=== PATIENT | female | born 1975 | race American Indian/Alaskan Native ===

== ENCOUNTER 2017-03-14 20:39 | Emergency (ER) | payer MEDICAID ==
--- NOTE | 2017-03-14 20:39 | EDM.PDOC ---
ED HPI GENERAL MEDICAL PROBLEM - General Chief Complaint: Lower Extremity Injury/Pain Stated Complaint: HURT ANKLE Time Seen by Provider: 03/14/17 20:36 Source of Information: Reports: Patient, EMS - History of Present Illness INITIAL COMMENTS - FREE TEXT/NARRATIVE: ED via [facility], Patient reports falling on ice, "hyper extending" ankle, while getting out of truck and felt a crunch. Severe pain. Non weight bearing. No other injury reported. Pain initially just to ankle, now pain radiating to below kness. Right Ankle Pain Score (Numeric/FACES): 4 - Related Data Allergies Allergy/AdvReac Type Severity Reaction Status Date / Time No Known Allergies Allergy Verified 05/05/13 12:50 Home Meds: Home Meds . [No Known Home Meds] 05/05/13 [History] Past Medical History - Past Health History Medical/Surgical History: Denies Medical/Surgical History Social & Family History - Tobacco Use Years of Tobacco use: 15 Second Hand Smoke Exposure: Yes - Recreational Drug Use Recreational Drug Use: No Review of Systems - Review of Systems Review Of Systems: ROS reveals no pertinent complaints other than HPI. ED EXAM, GENERAL - Physical Exam Exam: See Below Exam Limited By: No Limitations General Appearance: Alert, Moderate Distress Ears: Normal External Exam Nose: Normal Inspection Throat/Mouth: Normal Inspection, Normal Voice Head: Atraumatic Neck: Normal Inspection, Full Range of Motion Respiratory/Chest: No Respiratory Distress, Normal Breath Sounds Cardiovascular: Normal Peripheral Pulses, Regular Rate, Rhythm Back Exam: Normal Inspection Extremities: Joint Swelling (right ankle swollen. Pain with minimal movement no gross deformity), Leg Pain (lower greater lateral with palpation). No: Normal Range of Motion Neurological: Alert, Normal Cognition Psychiatric: Tearful Skin Exam: Warm, Dry, Intact, Normal Color Course - Vital Signs Last Recorded V/S: Last Vital Signs Temp 97.2 F 03/14/17 20:49 Pulse 92 03/14/17 20:49 Resp 20 03/14/17 20:49 BP 123/82 03/14/17 20:49 Pulse Ox 99 03/14/17 20:49 - Orders/Labs/Meds Meds: Medications Discontinued Medications Generic Name Dose Route Start Last Admin Trade Name Freq PRN Reason Stop Dose Admin Oxycodone/Acetaminophen 1 tab 03/14/17 20:51 03/14/17 21:02 Percocet 325-5 Mg PO 03/14/17 20:52 1 tab ONETIME ONE Administration Departure - Departure Time of Disposition: 22:54 Disposition: Home, Self-Care 01 Condition: Good Clinical Impression: Ankle sprain Qualifiers: Encounter type: initial encounter Involved ligament of ankle: unspecified ligament Laterality: right Qualified Code(s): S93.401A - Sprain of unspecified ligament of right ankle, initial encounter - Discharge Information Instructions: Ankle Sprain, [id number] Forms: ED Department Discharge Additional Instructions: Weight bearing as tolerated with boot and crutches tylenol or ibuprofen for discomfort recheck in clinic in one week
[2017-03-14] MEDS ORDERED: Acetaminophen/oxyCODONE 325-5 MG Tab PO ONE (20:51)
== END 2017-03-14 23:05 | disposition home or self-care (01) ==
LOC: DL.ED 20:39
DX: S93.401A Sprain of unspecified ligament of right ankle, initial encounter (principal); W00.0XXA Fall on same level due to ice and snow, initial encounter; Z77.22 Contact with and (suspected) exposure to environmental tobacco smoke (acute) (chronic)
CPT/HCPCS: 73590; 73610; 73620; 99283; A9270

== ENCOUNTER 2017-04-15 19:28 | Emergency (ER) | payer MEDICAID ==
--- NOTE | 2017-04-15 19:42 | EDM.PDOC ---
ED HPI GENERAL MEDICAL PROBLEM - General Chief Complaint: Chest Pain Stated Complaint: CAME BY AMBULANCE, CHEST PAIN Time Seen by Provider: 04/15/17 19:40 Source of Information: Reports: Patient History Limitations: Reports: No Limitations - History of Present Illness INITIAL COMMENTS - FREE TEXT/NARRATIVE: 2 weeks h/o on off mid sternal sharp pain, worse when deep breath and move or lift. gone when resting. thinks it's muscular but not getting better and now worried. 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 - Past Surgical History Female Surgical History: Reports: Section Social & Family History - Family History Family Medical History: Noncontributory - Tobacco Use Smoking Status *Q: Never Smoker Years of Tobacco use: 15 Used Tobacco, but Quit: No Second Hand Smoke Exposure: Yes - Caffeine Use Caffeine Use: Reports: Coffee - Recreational Drug Use Recreational Drug Use: No ED ROS GENERAL - Review of Systems Review Of Systems: ROS reveals no pertinent complaints other than HPI. ED EXAM, GENERAL - Physical Exam Exam: See Below Exam Limited By: No Limitations General Appearance: Alert, WD/WN, Mild Distress, Moderate Distress, Other ( episodic sharp pain) Ears: Hearing Grossly Normal Throat/Mouth: Normal Voice, No Airway Compromise Head: Atraumatic Neck: Non-Tender, Full Range of Motion Respiratory/Chest: No Respiratory Distress, Normal Breath Sounds, Splinting, Other (tender mid sternum) Cardiovascular: Regular Rate, Rhythm GI/Abdominal: Soft, Non-Tender Neurological: Alert, Oriented, Normal Cognition, Normal Gait, No Motor/Sensory Deficits Psychiatric: Tearful Skin Exam: Warm, Dry, Normal Color Lymphatic: No Adenopathy Course - Vital Signs Last Recorded V/S: Last Vital Signs Temp 37.1 C 04/15/17 19:38 Pulse 69 04/15/17 19:38 Resp 16 04/15/17 19:38 BP 123/86 04/15/17 19:38 Pulse Ox 97 04/15/17 19:38 - Orders/Labs/Meds Labs: Laboratory Tests 04/15/17 04/15/17 04/15/17 Range/Units 19:47 19:47 19:47 WBC 6.4 (5.0-10.0) 10^3/uL RBC 4.05 L (4.2-5.4) 10^6/uL Hgb 13.1 (12.0-16.0) g/dL Hct 38.1 (37.0-47.0) % MCV 94.1 D (80-100) fL MCH 32.3 (27.0-34.0) pg MCHC 34.4 (33.0-35.0) g/dL Plt Count 233 (150-450) 10^3/uL Neut % (Auto) 51.2 (42.2-75.2) % Lymph % (Auto) 36.9 (20.5-50.1) % [place] % (Auto) 6.7 (2-8) % Eos % (Auto) 4.4 H (1.0-3.0) % Baso % (Auto) 0.8 (0.0-1.0) % D-Dimer, Quantitative < 100 (0-400) ng/mL Sodium 138 (135-145) mmol/L Potassium 3.8 (3.6-5.0) mmol/L Chloride 103 (101-111) mmol/L Carbon Dioxide 29.0 (21.0-31.0) mmol/L Anion Gap 9.8 BUN 10 (7-18) mg/dL Creatinine 0.7 (0.6-1.3) mg/dL Est Cr Clr Drug Dosing 92.25 mL/min Estimated GFR (MDRD) > 60 BUN/Creatinine Ratio 14.28 Glucose 99 (74-105) mg/dL Calcium 9.2 (8.4-10.2) mg/dl Total Bilirubin 1.3 H (0.2-1.0) mg/dL AST 20 (10-42) IU/L ALT 22 (10-60) IU/L Alkaline Phosphatase 52 (42-121) IU/L Troponin I < 0.02 (0.00-0.02) ng/ml Total Protein 7.7 (6.7-8.2) g/dl Albumin 4.6 (3.2-5.5) g/dl Globulin 3.1 Albumin/Globulin Ratio 1.48 Meds: Medications Discontinued Medications Generic Name Dose Route Start Last Admin Trade Name Freq PRN Reason Stop Dose Admin Ketorolac Tromethamine 15 mg 04/15/17 19:48 04/15/17 20:08 Toradol IVPUSH 04/15/17 19:49 15 mg ONETIME ONE Administration - Re-Assessments/Exams Free Text/Narrative Re-Assessment/Exam: 04/15/17 20:33 results discussed with pt who is feeling better s/p IV toradol Departure - Departure Time of Disposition: 20:34 Disposition: Home, Self-Care 01 Condition: Good Clinical Impression: Muscle strain of anterior chest wall Instructions: Muscle Strain, [id number] Forms: ED Department Discharge Additional Instructions: 1) try heat pad to sore area 2) avoid bending lifting staining next 4 to 5 days 3) recheck as needed rxgiven; flexeril 10mg bid prn x 12
[2017-04-15] MEDS ORDERED: Ketorolac 30 MG/ML SDV IVPUSH ONE (19:48)
[2017-04-15 20:13] LABS: CHLORIDE,CL 103 mmol/L (101-111); SODIUM,NA 138 mmol/L (135-145)
--- NOTE | 2017-04-23 09:53 | EKG ---
04/15/2017- SHELBY GUNN - EKG per my reading shows sinus rhythm. [facility] /[id number]
== END 2017-04-15 20:41 | disposition home or self-care (01) ==
LOC: DL.ED 19:28
DX: S29.011A Strain of muscle and tendon of front wall of thorax, initial encounter (principal); X50.9XXA Other and unspecified overexertion or strenuous movements or postures, initial encounter
CPT/HCPCS: 36415; 80053; 84484; 85025; 85379; 96374; 99285; J1885

== ENCOUNTER 2018-07-27 19:47 | Emergency (ER) | payer MEDICAID, OTHER ==
[2018-07-27 20:52] LABS: CHLORIDE,CL 105 mmol/L (101-111); SODIUM,NA 137 mmol/L (135-145)
[2018-07-27] MEDS ORDERED: Ondansetron 4 MG/2 ML SDV IV ONE (21:01)
[2018-07-27] MEDS ORDERED: HYDROmorphone 1 MG/ML Syringe IVPUSH ONE (21:03)
[2018-07-27] MEDS ORDERED: Iopamidol 612 MG/ML 75 ML Bottle IVPUSH ONE (21:30)
--- NOTE | 2018-07-27 22:20 | EDM.PDOC ---
"ED HPI GENERAL MEDICAL PROBLEM - General Chief Complaint: Abdominal Pain Stated Complaint: APPENDIX [id number] Time Seen by Provider: 07/27/18 20:05 Source of Information: Reports: Patient History Limitations: Reports: No Limitations - History of Present Illness INITIAL COMMENTS - FREE TEXT/NARRATIVE: ED with c/o nausea, cough and RLQ pain, Pain started this am after coughing and constant since, some increase tonight, unable to get out of bed tonight due to pain, one diarrhea stool, one emesis with coughing. Fever since friday with onset of cold symptoms. Seen in clinic earlier today for same complaint, told she didn't have flu or appendicitis. 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 - Past Surgical History Other Cardiovascular Surgeries/Procedures: Had a stress test two weeks ago ( approx 07/13/18) Female Surgical History: Reports: Section Social & Family History - Family History Family Medical History: Noncontributory - Tobacco Use Smoking Status *Q: Never Smoker - Caffeine Use Caffeine Use: Reports: Coffee - Recreational Drug Use Recreational Drug Use: No ED ROS GENERAL - Review of Systems Review Of Systems: ROS reveals no pertinent complaints other than HPI. ED EXAM, GI/ABD - Physical Exam Exam: See Below Exam Limited By: No Limitations General Appearance: Alert, Moderate Distress Eyes: Bilateral: EOMI Ears: Normal External Exam Nose: Normal Inspection Throat/Mouth: Normal Inspection Head: Atraumatic, Normocephalic Neck: Normal Inspection Respiratory/Chest: No Respiratory Distress, Lungs Clear, Decreased Breath Sounds Cardiovascular: Normal Peripheral Pulses, Regular Rate, Rhythm GI/Abdominal Exam: Soft, Guarding, Rebound, Tender (RLQ), Abnormal Bowel Sounds (hypoactive) Back Exam: Normal Inspection Extremities: Normal Inspection Neurological: Alert, Oriented Psychiatric: Normal Affect Skin Exam: Warm, Dry, Intact, Normal Color Course - Vital Signs Last Recorded V/S: Last Vital Signs Temp 99.5 F 07/27/18 19:54 Pulse 106 H 07/27/18 19:54 Resp 18 07/27/18 19:54 BP 109/71 07/27/18 19:54 Pulse Ox 100 07/27/18 19:54 - Orders/Labs/Meds Orders: Active Orders 24 hr Category Date Time Status CULTURE BLOOD [BC] Stat Lab 07/27/18 20:24 Received Labs: Laboratory Tests 07/27/18 07/27/18 07/27/18 Range/Units 20:24 20:24 20:24 WBC 10.2 H (5.0-10.0) 10^3/uL RBC 4.31 (4.2-5.4) 10^6/uL Hgb 14.1 (12.0-16.0) g/dL Hct 40.4 (37.0-47.0) % MCV 93.7 (80-100) fL MCH 32.7 (27.0-34.0) pg MCHC 34.9 (33.0-35.0) g/dL Plt Count 185 (150-450) 10^3/uL Neut % (Auto) 73.3 (42.2-75.2) % Lymph % (Auto) 18.3 L (20.5-50.1) % [place] % (Auto) 7.9 (2-8) % Eos % (Auto) 0.4 L (1.0-3.0) % Baso % (Auto) 0.1 (0.0-1.0) % Sodium (135-145) mmol/L Potassium (3.6-5.0) mmol/L Chloride (101-111) mmol/L Carbon Dioxide (21.0-31.0) mmol/L Anion Gap BUN (7-18) mg/dL Creatinine (0.6-1.3) mg/dL Est Cr Clr Drug Dosing mL/min Estimated GFR (MDRD) BUN/Creatinine Ratio Glucose (74-105) mg/dL Lactic Acid (0.5-2.2) mmol/L Calcium (8.4-10.2) mg/dl Total Bilirubin (0.2-1.0) mg/dL AST (10-42) IU/L ALT (10-60) IU/L Alkaline Phosphatase (42-121) IU/L Total Protein (6.7-8.2) g/dl Albumin (3.2-5.5) g/dl Globulin Albumin/Globulin Ratio Amylase (28-100) U/L Lipase (22-51) U/L Urine Color Yellow (YELLOW) Urine Appearance Slightly cloudy (CLEAR) Urine pH 7.0 (5.0-9.0) Ur Specific [place] 1.015 (1.005-1.030) Urine Protein Negative (NEGATIVE) Urine Glucose (UA) Negative (NEGATIVE) Urine Ketones Negative (NEGATIVE) Urine Occult Blood Small H (NEGATIVE) Urine Nitrite Negative (NEGATIVE) Urine Bilirubin Negative (NEGATIVE) Urine Urobilinogen 2.0 H (0.2-1.0) mg/dL Ur Leukocyte Esterase Negative (NEGATIVE) Urine RBC 5-10 H /HPF Urine WBC 0-5 (0-5/HPF) /HPF Ur Epithelial Cells Few /HPF Amorphous Sediment Rare (0/HPF) /HPF Urine Bacteria Rare (0-FEW/HPF) /HPF Urine Mucus Rare /LPF Urine HCG, Qual Negative 07/27/18 07/27/18 Range/Units 20:24 20:24 WBC (5.0-10.0) 10^3/uL RBC (4.2-5.4) 10^6/uL Hgb (12.0-16.0) g/dL Hct (37.0-47.0) % MCV (80-100) fL MCH (27.0-34.0) pg MCHC (33.0-35.0) g/dL Plt Count (150-450) 10^3/uL Neut % (Auto) (42.2-75.2) % Lymph % (Auto) (20.5-50.1) % [place] % (Auto) (2-8) % Eos % (Auto) (1.0-3.0) % Baso % (Auto) (0.0-1.0) % Sodium 137 (135-145) mmol/L Potassium 4.0 (3.6-5.0) mmol/L Chloride 105 (101-111) mmol/L Carbon Dioxide 22.0 (21.0-31.0) mmol/L Anion Gap 14.0 BUN 6 L (7-18) mg/dL Creatinine 0.5 L (0.6-1.3) mg/dL Est Cr Clr Drug Dosing 127.86 mL/min Estimated GFR (MDRD) > 60 BUN/Creatinine Ratio 12.00 Glucose 100 (74-105) mg/dL Lactic Acid 1.1 (0.5-2.2) mmol/L Calcium 8.3 L (8.4-10.2) mg/dl Total Bilirubin 2.7 H (0.2-1.0) mg/dL AST 25 (10-42) IU/L ALT 10 (10-60) IU/L Alkaline Phosphatase 54 (42-121) IU/L Total Protein 7.9 (6.7-8.2) g/dl Albumin 4.1 (3.2-5.5) g/dl Globulin 3.8 Albumin/Globulin Ratio 1.08 Amylase 19 L (28-100) U/L Lipase 18 L (22-51) U/L Urine Color (YELLOW) Urine Appearance (CLEAR) Urine pH (5.0-9.0) Ur Specific [place] (1.005-1.030) Urine Protein (NEGATIVE) Urine Glucose (UA) (NEGATIVE) Urine Ketones (NEGATIVE) Urine Occult Blood (NEGATIVE) Urine Nitrite (NEGATIVE) Urine Bilirubin (NEGATIVE) Urine Urobilinogen (0.2-1.0) mg/dL Ur Leukocyte Esterase (NEGATIVE) Urine RBC /HPF Urine WBC (0-5/HPF) /HPF Ur Epithelial Cells /HPF Amorphous Sediment (0/HPF) /HPF Urine Bacteria (0-FEW/HPF) /HPF Urine Mucus /LPF Urine HCG, Qual Meds: Medications Discontinued Medications Generic Name Dose Route Start Last Admin Trade Name Bismarkq PRN Reason Stop Dose Admin Hydromorphone HCl 1 mg 07/27/18 21:03 07/27/18 21:13 Dilaudid IVPUSH 07/27/18 21:04 1 mg ONETIME ONE Administration Sodium Chloride 1,000 mls @ 200 mls/hr 07/27/18 22:30 07/27/18 22:23 Normal Saline IV 200 mls/hr ASDIRECTED JYANE Administration Iopamidol 75 ml 07/27/18 21:30 07/27/18 21:54 Isovue-300 (61%) IVPUSH 07/27/18 21:31 75 ml ONETIME ONE Administration Ondansetron HCl 4 mg 07/27/18 21:01 07/27/18 21:09 Zofran IV 07/27/18 21:02 4 mg ONETIME ONE Administration - Radiology Interpretation Free Text/Narrative:: [facility] [place] [facility] Final Radiology Report with Addendum Call: [phone] assistance Online chat: [email or web address] Name: SHELBY GUNN Age: 43Years F Date: 07/27/2018 SSN: -- : [id number] Study: CT ABDOMEN/PELVIS W Requesting Physician: MER ALLRED Images: 220 Addl Studies: Provided Clinical History: Contrast: With Contrast Medium: Iso 300 Contrast Amount: 75 mL Contrast Method: L AC 18g Page 1 of 2 Addendum created by Khoa Paul MD on 07/27/2018 10:11 PM Central Time ([place] & [place]) THIS REPORT CONTAINS FINDINGS THAT MAY BE CRITICAL TO PATIENT CARE. The findings were verbally communicated via telephone conference with MER ALLRED at 10: 10 PM CDT on 07/27/2018. The findings were acknowledged and understood. Initial Report created on 07/27/2018 10:09 PM Central Time ([place] & [place]) EXAM: CT Abdomen and Pelvis With Contrast EXAM DATE/TIME: 07/27/2018 9:44 PM CLINICAL HISTORY: 43 years old, female; Abdominal pain; Localized; Right lower quadrant (rlq); Patient HX: Tubal ligation, HX of 2 c sections TECHNIQUE: Imaging protocol: Axial computed tomography images of the abdomen and pelvis with intravenous contrast. Coronal and sagittal reformatted images were created and reviewed. Radiation optimization: All CT scans at this facility use at least one of these dose optimization techniques: automated exposure control; mA and/or kV adjustment per patient size (includes targeted exams where dose is matched to clinical indication); or iterative reconstruction. Contrast material: ISO 300; Contrast volume: 75 ml; Contrast route: L AC 18G; COMPARISON: No relevant prior studies available. FINDINGS: SHELBY GUNN | Final Radiology Report CONFIDENTIALITY STATEMENT This report is intended only for use by the referring physician, and only in accordance with law. If you received this in error, call [phone]. Page 2 of 2 ABDOMEN: Liver: No suspicious lesions. Gallbladder and bile ducts: No acute or concerning findings. Pancreas: Unremarkable. No ductal dilation. Spleen: No suspicious lesions. Adrenals: Unremarkalbe. No suspicious mass. Kidneys and ureters: Unremarkable. No hydro. No suspicious lesions. Stomach and bowel: Unremarkable. No obstruction or inflammatory changes. Appendix: Appendix dilated at 9 mm. Periappendiceal inflammatory changes. PELVIS: Bladder: Unremarkable as visualized. Reproductive: Unremarkable as visualized. ABDOMEN and PELVIS: Intraperitoneal space: No free air. No significant fluid collection. Bones/joints: No acute fracture. No dislocation. Soft tissues: Unremarkable. Vasculature: Unremarkable. No acute findings Lymph nodes: Unremarkable. IMPRESSION: Uncomplicated acute appendicitis. Thank you for allowing us to participate in the care of your patient. Dictated and Authenticated by: Khoa Paul MD - Re-Assessments/Exams Free Text/Narrative Re-Assessment/Exam: 07/28/18 00:[address] audrey Paredes accepting of patient, tx via [facility]. NPO enroute. Departure - Departure Time of Disposition: 22:24 Disposition: Home, Self-Care 01 Condition: Good Clinical Impression: Acute appendicitis Qualifiers: Acute appendicitis type: unspecified acute appendicitis type Qualified Code(s) : K35.80 - Unspecified acute appendicitis URI (upper respiratory infection) Qualifiers: URI type: unspecified viral URI Qualified Code(s): J06.9 - Acute upper respiratory infection, unspecified - Discharge Information *PRESCRIPTION DRUG MONITORING PROGRAM REVIEWED*: Yes *COPY OF PRESCRIPTION DRUG MONITORING REPORT IN PATIENT ROSHAN: No Forms: ED Department Discharge - My Orders Last 24 Hours: My Active Orders 07/27/18 20:24 CULTURE BLOOD [BC] Stat - Assessment/Plan Last 24 Hours: My Active Orders 07/27/18 20:24 CULTURE BLOOD [BC] Stat"
[2018-07-27] MEDS ORDERED: Sodium Chloride 0.9% 1,000 ML IV SCH (22:30)
== END 2018-07-27 22:35 | disposition home or self-care (01) ==
LOC: DL.ED 19:47
DX: K35.80 Unspecified acute appendicitis (principal); J06.9 Acute upper respiratory infection, unspecified
CPT/HCPCS: 36415; 74177; 80053; 81001; 81025; 82150; 83605; 83690; 85025; 87040; 87804; 96374; 96375; 99285; J1170; J2405; J7030; Q9967

== ENCOUNTER 2019-10-30 21:45 | Emergency (ER) | payer MEDICAID, OTHER ==
[2019-10-30] MEDS ORDERED: Diphtheria,Pertussis(Acell),Tetanus Vaccine 0.5 ML SDV IM ONE (22:15)
[2019-10-30] MEDS ORDERED: Bacitracin Oint 1 GM U/D Packet TOP ONE (22:15)
--- NOTE | 2019-10-30 22:28 | EDM.PDOC ---
ED HPI GENERAL MEDICAL PROBLEM - General Chief Complaint: Laceration Stated Complaint: CUT LEFT THUMB TIP. Time Seen by Provider: 10/30/19 22:15 Source of Information: Reports: Patient History Limitations: Reports: No Limitations - History of Present Illness INITIAL COMMENTS - FREE TEXT/NARRATIVE: This 44 yo female patient reports to the ED with a laceration to her left distal thumb. The patient reports she was cutting apples when she cut her finger. Onset: Today Duration: Minutes: Location: Reports: Upper Extremity, Left Quality: Reports: Ache Severity: Mild Improves with: Reports: None Worsens with: Reports: None Context: Reports: Activity Associated Symptoms: Reports: No Other Symptoms Left Finger-Thumb Pain Score (Numeric/FACES): 4 - Related Data Allergies Allergy/AdvReac Type Severity Reaction Status Date / Time No Known Allergies Allergy Verified 10/30/19 22:08 Home Meds: Home Meds Albuterol [Proventil Neb Soln] 3 ml INH Q4HR PRN 07/27/18 [History] Past Medical History - Past Health History Medical/Surgical History: Denies Medical/Surgical History HEENT History: Reports: Impaired Vision Gastrointestinal History: Reports: None Genitourinary History: Reports: None 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 Musculoskeletal History: Reports: None Neurological History: Reports: None Psychiatric History: Reports: None Endocrine/Metabolic History: Reports: None Hematologic History: Reports: None Immunologic History: Reports: None Oncologic (Cancer) History: Reports: None Dermatologic History: Reports: None - Past Surgical History Head Surgeries/Procedures: Reports: None Other Cardiovascular Surgeries/Procedures: Had a stress test (approx 07/13/18) Female Surgical History: Reports: Section Social & Family History - Family History Family Medical History: Noncontributory - Tobacco Use Smoking Status *Q: Never Smoker - Caffeine Use Caffeine Use: Reports: Coffee - Recreational Drug Use Recreational Drug Use: No ED ROS GENERAL - Review of Systems Review Of Systems: Comprehensive ROS is negative, except as noted in HPI. ED EXAM, SKIN/RASH Exam: See Below Exam Limited By: No Limitations General Appearance: Alert, WD/WN, Moderate Distress Eye Exam: Bilateral Eye: EOMI, Normal Inspection, PERRL Ears: Normal External Exam, Normal Canal, Hearing Grossly Normal, Normal TMs Nose: Normal Inspection, Normal Mucosa, No Blood Throat/Mouth: Normal Inspection, Normal Lips, Normal Teeth, Normal Gums, Normal Oropharynx, Normal Voice, No Airway Compromise Head: Atraumatic, Normocephalic Neck: Normal Inspection, Supple, Non-Tender, Full Range of Motion Respiratory/Chest: No Respiratory Distress, Lungs Clear, Normal Breath Sounds, No Accessory Muscle Use, Chest Non-Tender Cardiovascular: Normal Peripheral Pulses, Regular Rate, Rhythm, No Edema, No Gallop, No JVD, No Murmur, No Rub (Female) Exam: Deferred Rectal (Female) Exam: Deferred Back Exam: Normal Inspection, Full Range of Motion, NT Extremities: Arm Pain (left distal thumb laceration) Neurological: Alert, Oriented, CN II-XII Intact, Normal Cognition, Normal Gait, Normal Reflexes, No Motor/Sensory Deficits Psychiatric: Normal Affect, Normal Mood Skin: Wound/Incision Location, Skin: Upper Extremity, Left Characteristics: Linear Lymphatic: No Adenopathy Course - Vital Signs Last Recorded V/S: Last Vital Signs Temp 37.3 C 10/30/19 22:08 Pulse 80 10/30/19 22:08 Resp 16 10/30/19 22:08 BP 119/82 10/30/19 22:08 Pulse Ox 100 10/30/19 22:08 - Orders/Labs/Meds Orders: Active Orders 24 hr Category Date Time Status Vaccines to be Administered [RC] PER UNIT ROUTINE Care 10/30/19 22:16 Active Meds: Medications Discontinued Medications Generic Name Dose Route Start Last Admin Trade Name Freq PRN Reason Stop Dose Admin Bacitracin 1 dose 10/30/19 22:15 Bacitracin Oint 1 Gm TOP 10/30/19 22:16 ONETIME ONE Diphtheria/Tetanus/Acell Pertussis 0.5 ml 10/30/19 22:15 Adacel IM 10/30/19 22:16 .ONCE ONE Departure - Departure Time of Disposition: 22:25 Disposition: Home, Self-Care 01 Condition: Fair Clinical Impression: Laceration of left thumb Qualifiers: Encounter type: initial encounter Damage to nail status: without damage Foreign body presence: without foreign body Qualified Code(s): S61.012A - Laceration without foreign body of left thumb without damage to nail, initial encounter - Discharge Information *PRESCRIPTION DRUG MONITORING PROGRAM REVIEWED*: Not Applicable *COPY OF PRESCRIPTION DRUG MONITORING REPORT IN PATIENT ROSHAN: Not Applicable Instructions: Laceration Care, Adult, [id number] Care Plan Goals: The patient was advised of the examination results during the visit. The patient's wound was cleaned and dressed with antibiotic ointment. The patient was given a Tetanus injection during the visit. The patient was advised to keep the area clean and dry over the next 48 hours. If the patient has any additional symptoms or concerns, the patient should either return to the emergency department or visit her primary care facility. Sepsis Event Note (ED) - Evaluation Sepsis Screening Result: No Definite Risk - Focused Exam Vital Signs: Vital Signs Temp Pulse Resp BP Pulse Ox 10/30/19 22:08 37.3 C 80 16 119/82 100 - My Orders Last 24 Hours: My Active Orders 10/30/19 22:16 Vaccines to be Administered [RC] PER UNIT ROUTINE - Assessment/Plan Last 24 Hours: My Active Orders 10/30/19 22:16 Vaccines to be Administered [RC] PER UNIT ROUTINE
== END 2019-10-30 22:29 | disposition home or self-care (01) ==
LOC: DL.ED 21:45
DX: S61.012A Laceration without foreign body of left thumb without damage to nail, initial encounter (principal); Z98.890 Other specified postprocedural states; Z23 Encounter for immunization; W26.0XXA Contact with knife, initial encounter
CPT/HCPCS: 90471; 90715; 99282; 99282-25

== ENCOUNTER 2020-04-12 14:08 | Emergency (ER) | payer OTHER ==
--- NOTE | 2020-04-12 14:41 | EDM.PDOC ---
ED HPI GENERAL MEDICAL PROBLEM - General Chief Complaint: Lower Extremity Injury/Pain Stated Complaint: LEFT LEG MIGHT HAVE BLOOD CLOT, RED Time Seen by Provider: 04/12/20 14:30 Source of Information: Reports: Patient, RN, RN Notes Reviewed History Limitations: Reports: No Limitations - History of Present Illness INITIAL COMMENTS - FREE TEXT/NARRATIVE: Patient presents to the ED via personal vehicle with complaints of erythema, edema, and pain to her left posterior calf. She reports these symptoms began three days ago and have progressively worsened since that time; she reports a limping gait because of the pain. She denies history of DVT and is not on blood thinners. She denies recent surgery, long sitting position, or long standing position. She denies chest pain, chest pressure, palpitations, shortness of breath, loss of motor function to the extremity, loss of sensory function to the area. She denies any chronic health conditions and states she is otherwise "...pretty healthy." She denies tobacco or alcohol use but attests to smoking cannabis about one week prior to today. left calf Pain Score (Numeric/FACES): 6 - Related Data Allergies Allergy/AdvReac Type Severity Reaction Status Date / Time No Known Allergies Allergy Verified 04/12/20 14:32 Home Meds: Home Meds Albuterol [Proventil Neb Soln] 3 ml INH Q4HR PRN 07/27/18 [History] Past Medical History - Past Health History Medical/Surgical History: Denies Medical/Surgical History HEENT History: Reports: Impaired Vision Gastrointestinal History: Reports: None Genitourinary History: Reports: None EMERGENCY MEDCL EMT History: Reports: , Other (See Below) Other EMERGENCY MEDCL EMT History: c-sect, tubes tied. Musculoskeletal History: Reports: None Neurological History: Reports: None Psychiatric History: Reports: None Endocrine/Metabolic History: Reports: None Hematologic History: Reports: None Immunologic History: Reports: None Oncologic (Cancer) History: Reports: None Dermatologic History: Reports: None - Past Surgical History Head Surgeries/Procedures: Reports: None Other Cardiovascular Surgeries/Procedures: Had a stress test (approx 07/13/18) Female Surgical History: Reports: Section Social & Family History - Family History Family Medical History: No Pertinent Family History - Caffeine Use Caffeine Use: Reports: Coffee Review of Systems - Review of Systems Review Of Systems: Comprehensive ROS is negative, except as noted in HPI. ED EXAM, GENERAL - Physical Exam Exam: See Below Exam Limited By: No Limitations General Appearance: Alert, WD/WN, No Apparent Distress Eye Exam: Right Eye: Proptosis, Bilateral Eye: EOMI, Normal Inspection, PERRL (3mm) Throat/Mouth: Normal Inspection, Normal Voice, No Airway Compromise Head: Atraumatic, Normocephalic Respiratory/Chest: No Respiratory Distress, Normal Breath Sounds, No Accessory Muscle Use, Chest Non-Tender, Decreased Breath Sounds Cardiovascular: Normal Peripheral Pulses, Regular Rate, Rhythm, No Edema, No Gallop, No JVD, No Murmur, No Rub Peripheral Pulses: 2+: Radial (L), Radial (R), Dorsalis Pedis (L), Dorsalis Pedis (R) Extremities: Prateek's Sign (To left), Leg Pain (To left postior lower leg), Increased Warmth (To left postior lower leg), Redness (To left postior lower leg) Neurological: Alert, Oriented, CN II-XII Intact, Normal Cognition, No Motor/Sensory Deficits, Abnormal Gait (Limping gait d/t pain) Psychiatric: Normal Affect, Normal Mood Skin Exam: Dry, Intact, Erythema (To left postior lower leg), Increased Warmth (To left postior lower leg), Other (Significant amount of varicose veins in bilateral lower extremities). No: Ecchymosis, Jaundice, Mottled, Pallor, Petechiae Course - Vital Signs Last Recorded V/S: Last Vital Signs Temp 98.0 F 04/12/20 14:17 Pulse 85 04/12/20 14:17 Resp 20 04/12/20 14:17 BP 111/79 04/12/20 14:17 Pulse Ox 99 04/12/20 14:17 - Orders/Labs/Meds Labs: Laboratory Tests 04/12/20 04/12/20 04/12/20 Range/Units 14:39 14:39 14:39 WBC 5.2 (5.0-10.0) 10^3/uL RBC 4.09 L (4.2-5.4) 10^6/uL Hgb 13.5 (12.0-16.0) g/dL Hct 39.5 (37.0-47.0) % MCV 96.6 (80-100) fL MCH 33.0 (27.0-34.0) pg MCHC 34.2 (33.0-35.0) g/dL Plt Count 230 (150-450) 10^3/uL Neut % (Auto) 67.4 (42.2-75.2) % Lymph % (Auto) 16.9 L (20.5-50.1) % [place] % (Auto) 10.1 H (2-8) % Eos % (Auto) 5.4 H (1.0-3.0) % Baso % (Auto) 0.2 (0.0-1.0) % PT 9.3 (9.0-12.0) SEC INR 1.0 (0.9-1.2) APTT 23.7 (22.0-34.0) SEC D-Dimer, Quantitative 832 H (0-400) ng/mL Sodium 137 (136-145) mmol/L Potassium 3.6 (3.5-5.1) mmol/L Chloride 101 (98-107) mmol/L Carbon Dioxide 25 (21-32) mmol/L Anion Gap 14.6 H (7-13) mEq/L BUN 13 (7-18) mg/dL Creatinine 0.74 (0.55-1.02) mg/dL Est Cr Clr Drug Dosing 84.65 mL/min Estimated GFR (MDRD) > 60 BUN/Creatinine Ratio 17.6 (No establ ref range) Glucose 111 H (74-99) mg/dL Calcium 8.5 (8.5-10.1) mg/dL Total Bilirubin 1.2 H (0.2-1.0) mg/dL AST 33 (15-37) U/L ALT 67 H (14-59) U/L Alkaline Phosphatase 85 (46-116) U/L Total Protein 7.4 (6.4-8.2) g/dL Albumin 3.7 (3.4-5.0) g/dL Globulin 3.7 Albumin/Globulin Ratio 1.0 - Re-Assessments/Exams Free Text/Narrative Re-Assessment/Exam: 04/12/20 CBC and CMP unremarkable for acute processes. US of left lower extremity revealed no DVT, large popliteal cyst, and thrombosed varices. Discussed findings with patient who verbalized understanding. Will treat thrombosed varices with enoxaparin 40 mg QD until she is able to see her PCP. She has an appointment scheduled for this upcoming Friday, which is six days away. Discussed supportive cares and red flag signs and symptoms which would warrant reexamination. Patient verbalized understanding and agreement with the plan of care. Departure - Departure Time of Disposition: 16:28 Disposition: Home, Self-Care 01 Condition: Good Clinical Impression: Acute superficial venous thrombosis of lower extremity Qualifiers: Laterality: left Qualified Code(s): I82.812 - Embolism and thrombosis of superficial veins of left lower extremity - Discharge Information *PRESCRIPTION DRUG MONITORING PROGRAM REVIEWED*: Not Applicable *COPY OF PRESCRIPTION DRUG MONITORING REPORT IN PATIENT ROSHAN: Not Applicable Instructions: Venous Thromboembolism Prevention Referrals: PCP,None [Primary Care Provider] - Forms: ED Department Discharge Additional Instructions: Rx: Enoxaparin 40mg 1.) Keep your appointment with your primary care provider for 04/18/20. 2.) You may take ibuprofen (Advil/Motrin) 400mg every six hours for pain and swelling to your leg. 3.) You may utilize compression therapy via compression stockings to both legs. Sepsis Event Note (ED) - Evaluation Sepsis Screening Result: No Definite Risk - Focused Exam Vital Signs: Vital Signs Temp Pulse Resp BP Pulse Ox 04/12/20 14:17 98.0 F 85 20 111/79 99
[2020-04-12 15:08] LABS: ANION GAP 14.6 mEq/L (7-13); CHLORIDE,CL 101 mmol/L (98-107); SODIUM,NA 137 mmol/L (136-145)
[2020-04-12 15:10] LABS: PTT,PARTIAL THROMBOPLSTIN TIME 23.7 SEC (22.0-34.0)
--- NOTE | 2020-04-12 15:48 | US ---
EXAMINATION: Venous Doppler Lwr Ext Lt SEX: Female AGE: 45 years CLINICAL HISTORY: 45-year-old female pain, swelling and erythema calf left lower extremity. Interpretation: No sonographic evidence deep vein thrombosis. Large avascular popliteal ([place]'s cyst). Thrombosed superficial veins posteriorly left calf. 1. Large 3.0 x 2.5 x 1.5 cm diameter avascular hypoechoic cysts in the popliteal fossa behind the left knee. 2. Noncompressible superficial venous structures region clinical concern i.e. phlebitis/thrombosed varices. 3. No sign of intraluminal echogenic thrombus and normal compressibility deep veins left groin, thigh, knee and calf with satisfactory augmentation and venous waveforms demonstrated respectively in the peroneal/posterior tibial veins of the left calf, popliteal vein behind the left knee, and proximally in the femoral veins of the left thigh and groin. 4. No lymphadenopathy in the groin. 5. No subcutaneous hematoma or suggestion of abscess. CONCLUSION: No DVT. Large popliteal cyst. Thrombosed varices left calf.
== END 2020-04-12 16:41 | disposition home or self-care (01) ==
LOC: DL.ED 14:08
DX: I82.812 Embolism and thrombosis of superficial veins of left lower extremity (principal)
CPT/HCPCS: 36415; 80053; 85025; 85379; 85610; 85730; 93971; 99284-25

== ENCOUNTER 2023-01-18 23:04 | Emergency (ER) | payer OTHER ==
[2023-01-18] MEDS ORDERED: Dexamethasone 4 MG/ML SDV IM ONE (23:53)
== END 2023-01-19 00:27 | disposition home or self-care (01) ==
LOC: DL.ED 23:04
DX: S39.012A Strain of muscle, fascia and tendon of lower back, initial encounter (principal); X50.1XXA Overexertion from prolonged static or awkward postures, initial encounter
CPT/HCPCS: 96372; 99282; 99283; J1100

== ENCOUNTER 2023-09-23 21:59 | Emergency (ER) | payer BC ==
[2023-09-23 22:42] LABS: BASOPHILS PERCENT AUTO 0.6 % (0.0-1.0); EOSINOPHILS PERCENT AUTO 5.7 % (1.0-3.0); HEMOGLOBIN 11.9 g/dL (12.0-16.0); LYMPHOCYTES PERCENT AUTO 37.7 % (20.5-50.1); MEAN CORPUSCULAR HEMOGLOBIN 28.9 pg (27.0-34.0); MEAN CORPUSCULAR HGB CONC 32.2 g/dL (33.0-35.0); MEAN CORPUSCULAR VOLUME 89.8 fL (80-100); MONOCYTES PERCENT AUTO 10.2 % (2-8); NEUTROPHILS PERCENT AUTO 45.8 % (42.2-75.2); PLATELET COUNT,PLT 283 10^3/uL (150-450); RED BLOOD CELL COUNT 4.12 10^6/uL (4.2-5.4); WHITE BLOOD CELL COUNT,WBC 6.3 10^3/uL (5.0-10.0)
[2023-09-23] MEDS: Orphenadrine 60 MG/2 ML Inj IM ONE (22:56)
[2023-09-23 23:00] LABS: ANION GAP 11.7 mEq/L (7-13); CALCIUM 8.7 mg/dL (8.5-10.1); CREATININE 0.75 mg/dL (0.55-1.02); EST CRCL DRUG DOSING (CG) 80.94 mL/min; POTASSIUM,K 3.7 mmol/L (3.5-5.1)
== END 2023-09-23 23:25 | disposition home or self-care (01) ==
LOC: DL.ED 21:59
DX: S16.1XXA Strain of muscle, fascia and tendon at neck level, initial encounter (principal); J01.00 Acute maxillary sinusitis, unspecified; R42 Dizziness and giddiness; Z79.51 Long term (current) use of inhaled steroids; X50.1XXA Overexertion from prolonged static or awkward postures, initial encounter
CPT/HCPCS: 36415; 80048; 85025; 96372; 99283; 99284; J2360

== ENCOUNTER 2023-12-17 23:13 | Emergency (ER) | payer SELFPAY ==
[2023-12-18 02:32] LABS: CORONAVIRUS COVID-19 NAA NEGATIVE (NEGATIVE); INFLUENZA A NAA NEGATIVE (NEGATIVE); INFLUENZA B NAA NEGATIVE (NEGATIVE); RESPIRATORY SYNCYTIAL VIR NAA NEGATIVE (NEGATIVE)
== END 2023-12-18 02:51 | disposition home or self-care (01) ==
LOC: DL.ED 23:13
DX: J06.9 Acute upper respiratory infection, unspecified (principal); Z79.899 Other long term (current) drug therapy
CPT/HCPCS: 0241U; 71045; 99283; 99285

== ENCOUNTER 2024-04-20 16:43 | Emergency (ER) | payer OTHER ==
[2024-04-20] MEDS: Naproxen 250 MG Tab PO ONE (19:04)
== END 2024-04-20 19:09 | disposition home or self-care (01) ==
LOC: DL.ED 16:43
DX: S02.2XXA Fracture of nasal bones, initial encounter for closed fracture (principal); Z79.51 Long term (current) use of inhaled steroids; M54.2 Cervicalgia; Y04.8XXA Assault by other bodily force, initial encounter
CPT/HCPCS: 70450; 70486; 72125; 99284; A9270